=== PATIENT | male | born 1990 | race Caucasian/White ===

== ENCOUNTER 2020-03-28 13:02 | Outpatient (REF) | payer MEDICAID, SELFPAY | END 2020-03-28 13:03 | disposition home or self-care (01) | LOC: HO.LAB 13:02 | PROVIDERS: Visit Provider Internal Medicine | DX: Z20.828 Contact with and (suspected) exposure to other viral communicable diseases (principal) | CPT/HCPCS: 36415; C9803; U0003 ==

== ENCOUNTER 2021-03-29 17:58 | Emergency (ER) | payer OTHER, SELFPAY ==
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
[2021-03-29 20:01] VITALS: BP 108/71; PULSE 65; RESP 18; TEMP 36.7; O2SAT 100; BMI 24.4
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
== END 2021-03-29 21:32 | disposition home or self-care (01) ==
PROVIDERS: Emergency Provider Emergency Medicine Emergency Medical Services
DX: S46.912A Strain of unspecified muscle, fascia and tendon at shoulder and upper arm level, left arm, initial encounter (principal); V49.40XA Driver injured in collision with unspecified motor vehicles in traffic accident, initial encounter; Y93.9 Activity, unspecified; Y92.410 Unspecified street and highway as the place of occurrence of the external cause; Y99.9 Unspecified external cause status
CPT/HCPCS: 73030; 99283

== ENCOUNTER 2022-01-05 16:40 | Outpatient (REF) | payer MEDICAID, SELFPAY ==
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
== END 2022-01-05 16:41 | disposition home or self-care (01) ==
LOC: HO.CT 16:40
PROVIDERS: Visit Provider Registered Nurse
DX: S09.90XD Unspecified injury of head, subsequent encounter (principal)
CPT/HCPCS: 70450